=== PATIENT | female | born 1980 | race Caucasian/White ===

== ENCOUNTER 2019-03-28 17:06 | Emergency (ER) | payer SELFPAY ==
[~2019-03-28] VITALS: Wt 89.0 kg
[2019-03-28 17:11] VITALS: BP 140/89; PULSE 89; RESP 18
--- NOTE | 2019-03-28 20:37 | ERD ---
ER Documentation Chief Complaint Chief Complaint pelvic pain x 1 week, seen at [facility] same , has ovaryan cyst HPI This is a 38-year-old G3, P1 female who presents to the ED complaining of intermittent pelvic pain since October 2018. She is previously diagnosed with an ovarian cyst. She has been having worsening right lower pelvic pain for the past 1 week and was seen at [facility] with a unremarkable work-up. She went to go see her AIR MOTOR REPAIRER today for worsening of her pelvic pain reported as 8 out of 10 and radiating to the lower back. No associated fevers, chills. She had an STD screen and wet mount that was negative. She was originally referred here for further evaluation. Patient has been taking 600 mg ibuprofen with intermittent relief of her pain which seems to improve when ambulating. She otherwise denies any flank pain, urinary symptoms, vaginal bleeding, vaginal discharge or any other complaints. Last menstrual cycle was 3 weeks ago. ROS All systems reviewed and are negative except as per history of present illness. Allergies Allergies: Coded Allergies: No Known Allergy (Unverified , 03/28/19) PMhx/Soc History of Surgery: Yes (Ovarian cyst removal) Anesthesia Reaction: No Hx Neurological Disorder: No Hx Respiratory Disorders: No Hx Cardiac Disorders: No Hx Psychiatric Problems: No Hx Miscellaneous Medical Probl: Yes (Hypothyroidism, ovarian cyst) Hx Alcohol Use: Yes (Couple of wine everyday) Hx Substance Use: No Hx Tobacco Use: Yes (8 months ago) Smoking Status: Former smoker Physical Exam Vitals Vital Signs Date Temp Pulse Resp B/P (MAP) Pulse Ox O2 O2 Flow FiO2 Time Delivery Rate 03/28/19 98.1 89 18 140/89 99 17:11 (106) Physical Exam Const: No acute distress Head: Atraumatic Eyes: Normal Conjunctiva ENT: Normal External Ears, Nose and Mouth. Neck: Full range of motion. No meningismus. Resp: Clear to auscultation bilaterally Cardio: Regular rate and rhythm, no murmurs Abd: Soft, + mild right suprapubic area to palpation. Negative McBurney's, negative Nettles's. No rebound no guarding. Non distended. Normal bowel sounds Skin: No petechiae or rashes Back: No midline or flank tenderness Ext: No cyanosis, or edema Neur: Awake and alert Psych: Normal Mood and Affect Results 24 hrs Laboratory Tests Test 03/28/19 19:02 Urine Color YELLOW Urine Clarity SLIGHTLY CLOUDY Urine pH 5.0 Urine Specific [place] 1.021 Urine Ketones TRACE mg/dL Urine Nitrite NEGATIVE mg/dL Urine Bilirubin NEGATIVE mg/dL Urine Urobilinogen 1+ mg/dL Urine Leukocyte Esterase NEGATIVE Emmett/ul Urine Microscopic RBC 2 /HPF Urine Microscopic WBC 1 /HPF Urine Squamous Epithelial Cells FEW /HPF Urine Mucus FEW /HPF Urine Hemoglobin NEGATIVE mg/dL Urine Glucose NEGATIVE mg/dL Urine Total Protein 1+ mg/dl Urine Test NEGATIVE Procedures/[facility] LABS & DIAGNOSTIC IMAGING: PROCEDURE: US Pelvis CLINICAL INDICATION: right pelvic pain . TECHNIQUE: Sonographic evaluation of the pelvis was performed utilizing both transabdominal and transvaginal technique. Curved array transabdominal transducer technique as well as a high frequency endovaginal probe was utilized. Images were reviewed on the high-resolution PACS workstation. COMPARISON: No prior studies are available for comparison. FINDINGS: The uterus measures 9.0 x 4.2 x 4.6 cm. The uterus is normal in size, echogenicity, and morphology. The uterus is anteverted in normal position. Nabothian cysts noted. The endometrium measures 0.69 cm in thickness. The normal trilaminar stripe of the endometrium is preserved. The right ovary measures 1.0 x 1.5 x 2.4 cm. The left ovary measures 3.0 x 1.8 x 2.5 cm. The ovaries are symmetric in size, echogenicity, and morphology. Normal arterial and venous Doppler flow is detected within the bilateral ovaries. There is a 1.6 cm left ovarian cyst with peripheral Doppler flow. Small amount of free fluid in the posterior cul-de-sac, nonspecific, and may be physiologic. IMPRESSION: No evidence of ovarian torsion. A 1.6 cm left ovarian cyst with peripheral Doppler flow likely represents a corpus luteum cyst. Correlate with serum beta HCG to exclude an ectopic p regnancy. Uterus and endometrium are within normal limits. MEDICAL DECISION MAKIN-year-old female presents with right pelvic pain. Was evaluated by her AIR MOTOR REPAIRER referred here for further evaluation. No evidence of peritonitis on physical exam. Pelvic ultrasound revealed an ovarian cyst on the left side, however patient's pain is on the right. No evidence of ovarian torsion. Her abdominal pain improved without any medication while here. There is no clear source of patient's abdominal pain. She is hemodynamically stable and can follow-up with this as outpatient. I have low suspicion for any acute emergent abdominal p athology. She was given copies of her ultrasound and told to follow-up with her AIR MOTOR REPAIRER this week. Recommended continuing taking ibuprofen for pain, otherwise return here for any new or worsening symptoms. 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 The patient was counseled about the risks of hypertension and urged to pursue outpatient monitoring and therapy within a week with their primary care physician. Departure Diagnosis: Primary Impression: Pelvic pain Additional Impression: Ovarian cyst Laterality: left Qualified Codes: N83.202 - Unspecified ovarian cyst, left side Condition: Stable Patient Instructions: Ovarian Cyst Referrals: [facility] YOU HAVE RECEIVED A MEDICAL SCREENING EXAM AND THE RESULTS INDICATE THAT YOU DO NOT HAVE A CONDITION THAT REQUIRES URGENT TREATMENT IN THE EMERGENCY DEPARTMENT. FURTHER EVALUATION AND TREATMENT OF YOUR CONDITION CAN WAIT UNTIL YOU ARE SEEN IN YOUR DOCTORS OFFICE WITHIN THE NEXT 1-2 DAYS. IT IS YOUR RESPONSIBILITY TO MAKE AN APPOINTMENT FOR FOLOW-UP CARE. IF YOU HAVE A PRIMARY DOCTOR --you should call your primary doctor and schedule an appointment IF YOU DO NOT HAVE A PRIMARY DOCTOR YOU CAN CALL OUR PHYSICIAN REFERRAL HOTLINE AT IF YOU CAN NOT AFFORD TO SEE A PHYSICIAN YOU CAN CHOSE FROM THE FOLLOWING [facility] [address] [facility]. [facility] [address] [facility] [facility] [address] [facility] [address] [facility] [facility] [address] [facility]. [facility]. [address] [facility]. [facility] YOU HAVE RECEIVED A MEDICAL SCREENING EXAM AND THE RESULTS INDICATE THAT YOU DO NOT HAVE A CONDITION THAT REQUIRES URGENT TREATMENT IN THE EMERGENCY DEPARTMENT. FURTHER EVALUATION AND TREATMENT OF YOUR CONDITION CAN WAIT UNTIL YOU ARE SEEN IN YOUR DOCTORS OFFICE WITHIN THE NEXT 1-2 DAYS. IT IS YOUR RESPONSIBILITY TO MAKE AN APPOINTMENT FOR FOLOW-UP CARE. IF YOU HAVE A PRIMARY DOCTOR --you should call your primary doctor and schedule and appointment IF YOU DO NOT HAVE A PRIMARY DOCTOR YOU CAN CALL OUR PHYSICIAN REFERRAL HOTLINE AT . IF YOU CAN NOT AFFORD TO SEE A PHYSICIAN YOU CAN CHOSE FROM THE FOLLOWING [facility]UTIONS: [facility] [address] [place] [address] [facility] [address] [place] [address] [facility] [address] [place] [address] [facility]SPECIALTIES Additional Instructions: Continue taking the ibuprofen for any pain. Your urine did not show any evidence of infection. Your pelvic ultrasound did show an ovarian cyst however on the left side which is not the cause of your pain. Take copies of your pelvic ultrasound to your AIR MOTOR REPAIRER for further management. Otherwise, return here for any new or worsening symptoms. CRISTINA SILVA PA-C March 28, 2019 20:37
== END 2019-03-28 20:25 | disposition home or self-care (01) ==
LOC: FTE 17:06
DX: N83.202 Unspecified ovarian cyst, left side (principal); E03.9 Hypothyroidism, unspecified; Z87.891 Personal history of nicotine dependence
CPT/HCPCS: 76830; 76856; 81001; 84703